=== PATIENT | male | born 2005 ===

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

== ENCOUNTER 2024-04-11 21:29 | Emergency (ER) | payer MEDICAID, SELFPAY ==
[2024-04-11 21:49] VITALS: BP 119/73; PULSE 89; RESP 18; TEMP 36.9; O2SAT 95; BMI 27.1
--- NOTE | 2024-04-11 21:58 | ED.GENADULT ---
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 He initially stated that he had not done anything to aggravate the calf. When I question further about doing any jumping goofing going up stairs where he felt something on Thursday when this started. He then remembered that he has a dance class on Thursday from 4-5 and there is a lot of jumping and movement. Symptoms started on Thursday, have progressed through the weekend. He states it hurts to walk on this leg and hurts in the calf with any walking. When he stretches the calf out, it hurts. There has been no swelling. He can find a position of comfort at rest. It does not hurt in the knee, he states it actually hurts in the calf. There has been no chest pain, no shortness of breath. Started as more of a sore sensation but is progressively worsening, hurts to walk. He has tried some Tylenol, has not tried any NSAIDs. Related Data Home Medications ?Medication ?Instructions ?Recorded ?Confirmed fluoxetine .ROUTE 04/17/22 Previous Rx's ?Medication ?Instructions ?Recorded albuterol sulfate 90 mcg/actuation 2 puff inhalation Q4-6H PRN 04/17/22 aerosol inhaler shortness of breath or wheezing #8.5 grams naproxen 500 mg tablet 500 mg PO BID #10 tabs 04/17/22 Allergies Allergy/AdvReac Type Severity Reaction Status Date / Time sunscreen AdvReac Uncoded 04/17/22 20:14 Review of Systems Narrative: As per HPI. PFS PFS Medical History Asthma ?J45.909 - Unspecified asthma, uncomplicated (ICD-10) Social History Smoking Status: Never smoker Non-prescribed substance use: denies use Exam Const: Vital Signs, click to edit/add: Vital Signs - 24 hr 04/11/24 21:49 Temperature 98.5 F Pulse Rate [Pulse Oximeter] 89 Respiratory Rate 18 Blood Pressure [Ri ght Upper Arm] 119/73 Pulse Oximetry 95 Oxygen Delivery Me thod Room Air If this 18-year-old male is alert, interactive, no apparent distress. Seen in exam room 3. He is conversive and very pleasant. Lungs clear, good air entry, no wheezing crackles. CV regular rate and rhythm, no murmur. On inspection of his left lower extremity, no knee joint effusion, can fully flex and extend the knee, full extension of the knee gives some pain in the calf posteriorly initially. There is no tenderness over the medial or collateral ligaments, patella tracks intact. There is no pretibial edema, he has got good peripheral pulses with the dorsalis pedis and posterior tibialis. He can wiggle his toes. He has good resisted dorsiflexion and plantar flexion although the plantar flexion causes some increased pain, passive stretching of the calf also elicits some pain. He complains of tenderness more distally in the body of the gastrocnemius but I feel no discrete mass. Achilles tendon is intact and nontender, no swelling about it. I can palpate the medial and lateral gastrocnemius muscle bodies, seems to be somewhat tender when palpating or when testing his strength about the ankle. Documenting provider has reviewed patient's vital signs: yes Course Course ED Course: Reviewed with patient that I think he has gastrocnemius strain. His Achilles tendon is intact. We do not have MSK ultrasound to look at the actual body of the gastrocnemius muscle. We can rule out DVT with ultrasound. Will get some basic labs on him as well. We will give him a dose of Toradol 10 mg orally. May need to do crutches on discharge, ice, NSAIDs and orthopedic follow-up. Will await our workup here. Reevaluation(s) Time of Reevaluation #1: 23:04 Reevaluation #1: Have reviewed the patient's labs are normal, nothing concerning there. His ultrasound per the medical center representative is negative for DVT. We discussed that this is likely musculoskeletal. Likely gastric knee me a strain versus plantaris tendon issue but either way, conservative management. We will get him crutches for pain-free weight-bearing. He has ibuprofen and Tylenol in his dorm room, will have him start scheduling ibuprofen and supplement with Tylenol. Ice to the calf if he can. Will provide him the phone number to follow up with Orthopedics. Vital Signs Vital signs: Initial Vital Signs Temperature 98.5 F 04/11/24 21:49 Temperature Source Temporal Artery Scan 04/11/24 21:49 Pulse Rate 89 04/11/24 21:49 Respiratory Rate 18 04/11/24 21:49 Blood Pressure 119/73 04/11/24 21:49 Blood Pressure Mean 88 04/11/24 21:49 Blood Pressure Position Sitting 04/11/24 21:49 Pulse Oximetry 95 04/11/24 21:49 Oxygen Delivery Method Room Air 04/11/24 21:49 Vital Signs Temperature 98.5 F 04/11/24 21:49 Pulse Rate 89 04/11/24 21:49 Respiratory Rate 18 04/11/24 21:49 Blood Pressure 119/73 04/11/24 21:49 Pulse Oximetry 95 04/11/24 21:49 Oxygen Delivery Method Room Air 04/11/24 21:49 Temperature 98.5 F 04/11/24 21:49 Pulse Rate 89 04/11/24 21:49 Respiratory Rate 18 04/11/24 21:49 Blood Pressure 119/73 04/11/24 21:49 Pulse Oximetry 95 04/11/24 21:49 Oxygen Delivery Method Room Air 04/11/24 21:49 Medications Administered Medications: Discontinued Medications Generic Name Dose Route Start Last Admin Trade Name Wilmar PRN Reason Stop Dose Admin Ketorolac Tromethamine 10 mg 04/11/24 22:08 04/11/24 22:16 Ketorolac 10 Mg Tablet PO 04/11/24 22:09 10 mg ONCE ONE Administration Medical Decision Making Lab Data Lab results reviewed: Yes I reviewed the patient's lab results Labs: Lab Results 04/11/24 Range/Units 22:14 WBC 8.05 (4.50-11.00) K/uL RBC 5.27 (4.30-5.90) m/uL Hgb 16.3 (13.5-17.5) gm/dL Hct 47.3 (37.0-53.0) % MCV 90 (80-100) fL MCH 31 (26-34) pg MCHC 35 (32-36) gm/dL RDW Coeff of Olivia 11.8 (11.5-15.5) % Plt Count 274 (140-440) K/uL Neut % (Auto) 49.1 (42.0-72.0) % Lymph % (Auto) 32.5 (20-44) % Benzie % (Auto) 8.4 (0.0-11.0) % Eos % (Auto) 8.9 H (0.0-7.0) % Baso % (Auto) 1.0 (0.0-3.0) % Neut # (Auto) 3.94 (1.7-7.0) K/uL Lymph # (Auto) 2.62 (0.90-2.90) K/uL Benzie # (Auto) 0.70 (0.00-0.90) K/UL Eos # (Auto) 0.70 H (0.00-0.50) K/uL Baso # (Auto) 0.08 (0.00-0.30) K/uL Abs Immat Gran (auto) 0.01 (0.00-0.30) K/uL Imm/Tot Granulo (auto) 0.1 % Sodium 138 (135-149) mmol/L Potassium 4.4 (3.6-5.1) mmol/L Chloride 99 (96-114) mmol/L Carbon Dioxide 27 (20-32) mmol/L Anion Gap 12 (7-15) mEq/L BUN 13 (5-24) mg/dL Creatinine 0.9 (0.5-1.5) mg/dL Estimated Creat Clear 143.70 Estimated GFR 125 ml/min Glucose 87 (60-115) mg/dL Calcium 9.5 (8.4-10.6) mg/dL Magnesium 2.3 (1.5-2.6) mg/dL Total Creatine Kinase 154 (54-186) U/L C-Reactive Protein < 0.5 L (0.5-1.0) mg/dL Discharge Plan Discharge Clinical Impression: Pain of left calf Patient Disposition: Home, Self-Care Condition: Stable Instructions: Leg Pain (ED) Additional Instructions: Use crutches for pain-free weight-bearing. Try to ice the calf if you are able to. Can increase activity as tolerated. Recommend ibuprofen 400 mg 3 times a day with food for the next week. Can supplement with Tylenol if needed for extra pain control, follow bottle directions for dosing. Please call Orthopedic office for follow-up appointment, phone number is [phone]. I suspect that you of a gastro knee me us strain or injury versus plantaris tendon problem. Conservative management would be indicated for either, Orthopedics can help with further treatment recommendations. Activity Level: Activity as Tolerated Prescriptions: No Action fluoxetine .ROUTE naproxen 500 mg tablet 500 mg PO BID Qty: 10 0RF albuterol sulfate 90 mcg/actuation HFA aerosol inhaler 2 puff inhalation Q4-6H PRN (Reason: shortness of breath or wheezing) Qty: 8.5 0RF Follow Up/Referrals: Provider,Not a Local [Primary Care Provider] - Stand Alone Forms: [employer] Info Instructions
--- NOTE | 2024-04-11 22:07 | CRLHL7_ITS ---
For Patients: As a result of the Century Cures Act, medical imaging exams and procedure reports are released immediately into your electronic medical record. You may view this report before your referring provider. If you have questions, please contact your health care provider. INDICATION: Pain and swelling TECHNIQUE: Ultrasound venous duplex lower left extremity. Compression venous exam was performed using santos-scale, color Doppler, and spectral Doppler analysis. COMPARISON: None FINDINGS: Sonographic imaging demonstrates the left common femoral, deep femoral, superficial femoral, popliteal, posterior tibial and greater saphenous and the contralateral right common femoral veins to be fully compressible with normal color Doppler blood flow. IMPRESSION: No convincing radiographic evidence of deep vein thrombosis within the visualized left lower extremity. Dictated by Stephen Beltran MD @ 04/11/2024 11:24:05 PM (Electronically Signed)
[2024-04-11] MEDS: KETOROLAC 10 MG TABLET PO (22:16)
[2024-04-11 22:36] LABS: Chloride* 99 mmol/L (96-114); Potassium* 4.4 mmol/L (3.6-5.1); Sodium* 138 mmol/L (135-149)
[2024-04-11 22:39] LABS: Anion Gap 12 mEq/L (7-15); Carbon Dioxide* 27 mmol/L (20-32); Creatine Kinase* 154 U/L (54-186); Creatinine* 0.9 mg/dL (0.5-1.5); Estimated Glomerular Filt Rate 125 ml/min
[2024-04-11 22:40] LABS: Blood Urea Nitrogen* 13 mg/dL (5-24); Calcium* 9.5 mg/dL (8.4-10.6); Glucose* 87 mg/dL (60-115); Magnesium* 2.3 mg/dL (1.5-2.6)
[2024-04-11 22:44] LABS: Basophils Absolute Auto 0.08 K/uL (0.00-0.30); Eosinophils Percent Auto 8.9 % (0.0-7.0); Hematocrit 47.3 % (37.0-53.0); Hemoglobin* 16.3 gm/dL (13.5-17.5); Immature Granulocytes Abs Auto 0.01 K/uL (0.00-0.30); Immature Granulocytes Pct Auto 0.1 %; Lymphocytes Absolute Auto 2.62 K/uL (0.90-2.90); Lymphocytes Percent Auto 32.5 % (20-44); Mean Corpuscular HGB Conc 35 gm/dL (32-36); Mean Corpuscular Hemoglobin 31 pg (26-34); Mean Corpuscular Volume 90 fL (80-100); Monocytes Percent Auto 8.4 % (0.0-11.0); Neutrophils Absolute Auto 3.94 K/uL (1.7-7.0); Neutrophils Percent Auto 49.1 % (42.0-72.0); Platelet Count* 274 K/uL (140-440); RDW Coefficient of Variation % 11.8 % (11.5-15.5); Red Blood Count 5.27 m/uL (4.30-5.90); White Blood Count* 8.05 K/uL (4.50-11.00)
[2024-04-11 22:50] LABS: Slide Review Reflex No
[2024-04-11 22:54] LABS: C Reactive Protein* < 0.5 mg/dL (0.5-1.0)
== END 2024-04-11 23:17 | disposition home or self-care (01) ==
PROVIDERS: Emergency Provider Family Medicine
DX: M79.605 Pain in left leg (principal)
CPT/HCPCS: 36415; 80048; 82550; 83735; 85025; 86140; 93971; 99283; 99284; A9270

== ENCOUNTER 2025-02-28 13:59 | Emergency (ER) | payer MEDICAID, SELFPAY ==
[2025-02-28 14:02] VITALS: BP 118/82; PULSE 72; RESP 20; TEMP 36.7; O2SAT 97; BMI 27.1
--- NOTE | 2025-02-28 14:12 | CRLHL7_ITS ---
For Patients: As a result of the Century Cures Act, medical imaging exams and procedure reports are released immediately into your electronic medical record. You may view this report before your referring provider. If you have questions, please contact your health care provider. INDICATION: RIGHT TESTICULAR PAIN COMPARISON: none TECHNIQUE: Sena scale imaging was performed of the scrotum. In addition color Doppler and spectral Doppler analysis was performed of the testes. FINDINGS: The testes demonstrate normal arterial and venous blood flow on color Doppler and spectral Doppler analysis. The testes have uniform echogenicity with no evidence of a suspicious mass or area of inflammation. The right testis measures 5.0 x 2.4 x 3.3 cm in size and the left testis measures 4.7 x 2.2 x 3.1 cm. Normal left epididymis. Increased vascularity within the right epididymis. There is no evidence of a hydrocele or varicocele. IMPRESSION: Right epididymitis. Dictated by Edgar Dominguez MD @ 02/28/2025 2:59:46 PM (Electronically Signed)
--- NOTE | 2025-02-28 14:15 | ED_ITS ---
HPI - General Adult General Date Seen: 02/28/25 Chief complaint: Urogenital Problems, Male Stated complaint: R abdomen pain Time Seen by Provider: 02/28/25 14:02 History of Present Illness HPI narrative: Patient is a 19-year-old [employer] student who presents for evaluation of right testicular pain which started about 8:00 a.m. this morning and has been getting worse. He notes pain in the testicle with urination but not dysuria otherwise. Pain radiates somewhat up to the abdomen but definitely starts in the testicle. He says that he had this once before, he believes he had an ultrasound which looked okay at that time. He has not had nausea vomiting, denies fevers, denies trauma. He feels that the testicle on that side is little swollen. It is painful to touch. Related Data Home Medications ?Medication ?Instructions ?Recorded ?Confirmed fluoxetine .Route 04/17/22 Previous Rx's ?Medication ?Instructions ?Recorded albuterol sulfate 90 mcg/actuation 2 puff inhalation Q 4-6H PRN 04/17/22 aerosol inhaler shortness of breath or wheez ing #8.5 grams Allergies Allergy/AdvReac Type Severity Reaction Status Date / Time sunscreen AdvReac Uncoded 04/17/22 20:14 Review of Systems Status of ROS: Reports: 10 or more systems reviewed and unremarkable except as noted in History and below [facility] Medical History Asthma ?J45.909 - Unspecified asthma, uncomplicated (ICD-10) Social History Smoking Status: Never smoker Non-prescribed substance use: denies use Exam Narrative: Exam Narrative: Vital signs reviewed In general, alert, nontoxic young man. He looks uncomfortable. Head: Normocephalic, atraumatic. Eyes: Sclera clear. Pupils equal and reactive. ENT: Mucous membranes moist. Neck: Supple without adenopathy. Heart: Regular rate and rhythm without murmur. Lungs: Clear. No increased work of breathing, crackles or wheezes. Abdomen: Soft, nontender to palpation. : No obvious swelling or erythema to the scrotum. He has diffuse tenderness of the right testicle, including the epididymis but he does not note isolated epididymal tenderness. Extremities: Well perfused, pulses intact. No significant edema. Neurologic: Alert, conversant. Speech fluent, face symmetric. Moves all extremities equally. Skin: Warm, dry well perfused. Affect: Normal. Const: Vital Signs, click to edit/add: Vital Signs - 24 hr 02/28/25 14:02 Temperature 98.0 F Pulse Rate [Pulse Oximeter] 72 Respiratory Rate 20 Blood Pressure [Ri ght Upper Arm] 118/82 Pulse Oximetry 97 Oxygen Delivery Me thod Room Air Course Course ED Course: Ultrasound ordered to evaluate for possible torsion. Will place an IV, give Toradol and 4 mg of morphine for pain. He looks significantly more comfortable after medications. Ultrasound read as showing good blood flow, inflammatory changes to the epididymis consistent with epididymitis. He did have a new sexual contact a couple of days ago. GC chlamydia pending. Took a long time for him to provide a urine sample, so I am not going to keep him while we wait for results. I did give him 500 mg of Rocephin IV, he is heterosexual exclusively, prescribing doxycycline for home. Discussed reasons to return. Ibuprofen or Tylenol if needed. Will call if GC or chlamydia is positive. Vital Signs Vital signs: Initial Vital Signs Temperature 98.0 F 02/28/25 14:02 Temperature Source Temporal Artery Scan 02/28/25 14:02 Pulse Rate 72 02/28/25 14:02 Pulse Rhythm Regular 02/28/25 14:02 Respiratory Rate 20 02/28/25 14:02 Blood Pressure 118/82 02/28/25 14:02 Blood Pressure Mean 94 02/28/25 14:02 Blood Pressure Position Sitting 02/28/25 14:02 Pulse Oximetry 97 02/28/25 14:02 Oxygen Delivery Method Room Air 02/28/25 14:02 Vital Signs Temperature 98.0 F 02/28/25 14:02 Pulse Rate 72 02/28/25 14:02 Respiratory Rate 20 02/28/25 14:02 Blood Pressure 118/82 02/28/25 14:02 Pulse Oximetry 97 02/28/25 14:02 Oxygen Delivery Method Room Air 02/28/25 14:02 Temperature 98.0 F 02/28/25 14:02 Pulse Rate 72 02/28/25 14:02 Respiratory Rate 20 02/28/25 14:02 Blood Pressure 118/82 02/28/25 14:02 Pulse Oximetry 97 02/28/25 14:02 Oxygen Delivery Method Room Air 02/28/25 14:02 Medications Administered Medications: Discontinued Medications Generic Name Dose Route Start Last Admin Trade Name Wilmar PRN Reason Stop Dose Admin Ceftriaxone Sodium 500 mg/ 100 mls @ 200 mls/hr 02/28/25 15:33 02/28/25 16:45 Sodium Chloride IVPB 02/28/25 15:34 Infused ONCE ONE Infusion Ketorolac Tromethamine 15 mg 02/28/25 14:12 02/28/25 14:22 Ketorolac 15 Mg/Ml Inj IVP 02/28/25 14:13 15 mg ONCE ONE Administration Morphine Sulfate 4 mg 02/28/25 14:12 02/28/25 14:22 Morphine 4 Mg/Ml Inj IVP 02/28/25 14:13 4 mg ONCE ONE Administration Medical Decision Making Imaging Data Scrotum ultrasound: Attestation: I have reviewed the pertinent imaging results. Radiologist's impression: Patient: Milton Null MR#: [id number] : 2005 Acct:[id number] Loc: ED Service Date: 02/28/[address]: Ordering Physician: Sandra Disla M.D. Date of Service: 02/28/25 Procedure(s): US scrotum Accession Number(s): [id number] cc: Sandra Disla M.D.; Provider,Not a Local~ For Patients: As a result of the Cures Act, medical imaging exams and procedure reports are released immediately into your electronic medical record. You may view this report before your referring provider. If you have questions, please contact your health care provider. INDICATION: RIGHT TESTICULAR PAIN COMPARISON: none TECHNIQUE: Sena scale imaging was performed of the scrotum. In addition color Doppler and spectral Doppler analysis was performed of the testes. FINDINGS: The testes demonstrate normal arterial and venous blood flow on color Doppler and spectral Doppler analysis. The testes have uniform echogenicity with no evidence of a suspicious mass or area of inflammation. The right testis measures 5.0 x 2.4 x 3.3 cm in size and the left testis measures 4.7 x 2.2 x 3.1 cm. Normal left epididymis. Increased vascularity within the right epididymis. There is no evidence of a hydrocele or varicocele. IMPRESSION: Right epididymitis. Dictated by Edgar Dominguez MD @ 02/28/2025 2:59:46 PM Discharge Plan Discharge Clinical Impression: Acute epididymitis Patient Disposition: Home, Self-Care Condition: Improved Instructions: Epididymitis (ED) Additional Instructions: Take doxycycline as prescribed. Symptoms should improve over the next week, if not you should be seen again for recheck. Return to the ER at any time if you have severe uncontrolled pain, vomiting, fever or other worsening. Prescriptions: No Action fluoxetine .Route albuterol sulfate 90 mcg/actuation HFA aerosol inhaler 2 puff inhalation Q4-6H PRN (Reason: shortness of breath or wheezing) Qty: 8.5 0RF Follow Up/Referrals: Provider,Not a Local [Primary Care Provider, Family Practice] Stand Alone Forms: [email or web address] Info Instructions
[2025-02-28] MEDS: MORPHINE 4 MG/ML INJ IVP (14:22)
[2025-02-28] MEDS: cefTRIAXone 500 MG in 0.9 % SODIUM CHLORIDE Mini-bag 100 ML 200 MG IVPB (16:09)
[2025-02-28 18:13] LABS: Chlamydia DNA Amplified* NOT DETECTED (No Detected); GC DNA Amplified* NOT DETECTED (No Detected)
== END 2025-02-28 16:54 | disposition home or self-care (01) ==
PROVIDERS: Emergency Provider Emergency Medicine
DX: N45.1 Epididymitis (principal)
CPT/HCPCS: 76870; 87491; 87591; 93976; 96365; 96375; 99284; J0696; J1885; J2270